=== PATIENT | male | born 1945 | race Caucasian/White ===

== ENCOUNTER → 2021-07-20 | Day surgery (SDC) | payer MEDICARE, OTHER ==
[~2021-07-20] VITALS: Ht 182.9 cm; Wt 79.8 kg
[~2021-07-20] MED LIST: ACID CONTROLLER20 MG PO; AMLODIPINE BESY10 MG PO; ASPIRIN EC81 MG PO; FLOMAX 0.4 MG0.4 MG PO; NORCO 5-325 TA1 EACH PO; ONDANSETRON ODT8 MG PO; REPATHA SU140 MG/1 M IJ; TOPROL XL 25MG25 MG PO; XARELTO20 MG PO
[2021-07-20 08:47] LABS: HCT 44.1 % (42.0-52.0); HGB 14.4 g/dl (13.2-18.0); MCH 27.5 pg (25.0-31.0); MCHC 32.7 g/dL (32.0-36.0); MCV 84.2 fL (78.0-100.0); MPV 10.2 fL (6.0-9.5); RBC 5.24 M/uL (4.70-6.00); WBC 7.7 K/uL (4.0-10.5)
[2021-07-20 09:07] LABS: BUN/CREAT RATIO (CALC) 13.9 RATIO; CREATININE 1.58 mg/dL (0.67-1.17); POTASSIUM 4.3 mmol/L (3.5-5.1)
== END | disposition home or self-care (01) ==
LOC: FAS 07:43
PROVIDERS: Anesthesiology; Surgery
DX: K40.30 Unilateral inguinal hernia, with obstruction, without gangrene, not specified as recurrent (principal); I10 Essential (primary) hypertension; E78.00 Pure hypercholesterolemia, unspecified; K21.9 Gastro-esophageal reflux disease without esophagitis; I25.10 Atherosclerotic heart disease of native coronary artery without angina pectoris; E78.5 Hyperlipidemia, unspecified; Z95.1 Presence of aortocoronary bypass graft; Z88.8 Allergy status to other drugs, medicaments and biological substances; Z79.82 Long term (current) use of aspirin; Z79.01 Long term (current) use of anticoagulants; Z79.899 Other long term (current) drug therapy
CPT/HCPCS: 36415; 80048; 93005; C1727; C1781; J0690; J1100; J2250; J2405; J2550; J2704; J3010; J7050; J7120